=== PATIENT | male | born 1960 | race Two or more races ===

== ENCOUNTER 2024-08-22 05:10 | Day surgery (SDC) | payer OTHER ==
[~2024-08-22 05:10] MED LIST: ROSUVASTATIN CA10 MG PO; ZESTRIL20 MG PO
[2024-08-22] MEDS ORDERED: DIBUCAINE 30 GM TUBE RECTAL ONE (07:30)
[2024-08-22] MEDS ORDERED: POVIDONE-IODINE 118 ML BOTT TOP ONE (07:30)
[2024-08-22] MEDS ORDERED: BUPIVACAINE HCL 30 ML VIAL IJ ONE (07:30)
[2024-08-22] MEDS ORDERED: LIDOCAINE HCL 1%/EPINEPHRINE 20ML VIAL IJ ONE (07:30)
[2024-08-22] MEDS ORDERED: HEMOSTATIC MATRIX 1 KIT KIT TOP ONE (07:30)
[2024-08-22] MEDS ORDERED: METRONIDAZOLE/SODIUM CHLORIDE 500 MG/100 ML PIGGYBACK IV ONE ×2 (07:30)
[2024-08-22] MEDS ORDERED: CEFTRIAXONE SODIUM 2,000 MG VIAL IV ONE (07:30)
== END 2024-08-22 14:15 | disposition home or self-care (01) ==
LOC: CIR.AMB 05:10
PROVIDERS: ATTEND Colon & Rectal Surgery
DX: D12.8 Benign neoplasm of rectum (principal); D12.9 Benign neoplasm of anus and anal canal